=== PATIENT | male | born 1990 | race African-American/Black ===

== ENCOUNTER 2018-10-29 03:22 | Emergency (ER) | payer OTHER ==
[~2018-10-29] VITALS: Ht 190.5 cm; Wt 106.8 kg
[2018-10-29 03:28] VITALS: Ht 190.5 cm; Wt 106.8 kg
[2018-10-29] MEDS ORDERED: HYDROCODON-ACE1 EAC7 PO (03:45)
[2018-10-29] MEDS ORDERED: AMOXICILLIN875 MG PO (03:45)
[2018-10-29 04:02] VITALS: BP 130/91
== END 2018-10-29 04:00 | disposition home or self-care (01) ==
LOC: D.ER 03:22
DX: K02.9 Dental caries, unspecified (principal); K04.7 Periapical abscess without sinus